=== PATIENT | female | born 1990 | race Caucasian/White ===

== ENCOUNTER 2016-10-10 19:21 | Emergency (ER) | payer OTHER | END 2016-10-10 20:00 | disposition left against medical advice (07) | LOC: SED 19:21 | DX: Z53.21 Procedure and treatment not carried out due to patient leaving prior to being seen by health care provider (principal) ==

== ENCOUNTER 2016-10-17 13:48 | Emergency (ER) | payer OTHER ==
[~2016-10-17] VITALS: Ht 157.5 cm; Wt 85.9 kg
[2016-10-17 13:51] VITALS: BP 129/90; PULSE 86; RESP 20; O2SAT 96
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
[2016-10-17 16:13] VITALS: BP 111/64; PULSE 94; O2SAT 96
[2016-10-17 18:46] VITALS: BP 116/62; PULSE 92; O2SAT 96
[2016-10-17 19:21] VITALS: BP 116/62; PULSE 92; RESP 20; O2SAT 96
== END 2016-10-17 19:22 | disposition short-term general hospital (02) ==
LOC: SED 13:48
DX: T85.01XA Breakdown (mechanical) of ventricular intracranial (communicating) shunt, initial encounter (principal); R51 Headache; Y84.8 Other medical procedures as the cause of abnormal reaction of the patient, or of later complication, without mention of misadventure at the time of the procedure; Y93.9 Activity, unspecified; Y99.9 Unspecified external cause status; Y92.9 Unspecified place or not applicable; Z86.61 Personal history of infections of the central nervous system; G91.9 Hydrocephalus, unspecified